=== PATIENT | male | born 1965 | race Caucasian/White ===

== ENCOUNTER → 2021-06-06 | Day surgery (SDC) | payer BC ==
[~2021-06-06] MED LIST: Ketamine 200 MG/20 ML MDV ONE; Lactated Ringers 1,000 ML IV SCH; Propofol 200 MG/20 ML SDV ONE; fentaNYL 100 MCG/2 ML SDV ONE
[2021-06-06 09:30] VITALS: BP 125/84; PULSE 65
== END ==
LOC: CC.SDS 07:11
PROVIDERS: ATTEND Family Medicine
DX: Z12.11 Encounter for screening for malignant neoplasm of colon (principal); D12.2 Benign neoplasm of ascending colon; D12.3 Benign neoplasm of transverse colon; F32.A Depression, unspecified; E11.9 Type 2 diabetes mellitus without complications; E66.9 Obesity, unspecified; G45.9 Transient cerebral ischemic attack, unspecified; F31.70 Bipolar disorder, currently in remission, most recent episode unspecified; Z80.0 Family history of malignant neoplasm of digestive organs; Z87.891 Personal history of nicotine dependence; Z79.899 Other long term (current) drug therapy; Z88.1 Allergy status to other antibiotic agents; Z79.02 Long term (current) use of antithrombotics/antiplatelets
CPT/HCPCS: 00812; J2704; J3010; J7120